=== PATIENT | male | born 1935 | race Caucasian/White ===

== ENCOUNTER 2018-10-18 20:16 | Inpatient (IN) | payer MEDICARE, BC ==
[~2018-10-18] VITALS: Ht 177.8 cm; Wt 89.6 kg
[2018-10-18 22:12] VITALS: BP 154/66
[2018-10-19] MEDS ORDERED: TIOT18CA INH (02:19)
[2018-10-19] MEDS ORDERED: OMEG1CAP6 PO (02:19)
[2018-10-19] MEDS ORDERED: OMEP20CA14 PO (02:19)
[2018-10-19] MEDS ORDERED: MONT10TA6 PO (02:19)
[2018-10-19] MEDS ORDERED: MULT-6 PO (02:19)
[2018-10-19] MEDS ORDERED: FURO-93 PO (02:19)
[2018-10-19] MEDS ORDERED: FLUT1AER INH (02:19)
[2018-10-19] MEDS ORDERED: HYDR-3237 PO (02:19)
[2018-10-19] MEDS ORDERED: ASPI-515 PO (02:19)
[2018-10-19] MEDS ORDERED: ISOS30TA8 PO (02:19)
[2018-10-19] MEDS ORDERED: OCCUVITE LUTEIN PO (02:19)
[2018-10-19] MEDS ORDERED: LUTE1CAP5 PEG (02:25)
[2018-10-19] MEDS ORDERED: ASPI81TA45 PO (02:25)
[2018-10-19 02:30] VITALS: BP 116/69
[2018-10-19] MEDS ORDERED: OXYcodone IR 5MG TABLET PO PRN (02:30)
[2018-10-19] MEDS ORDERED: LABETALOL 5MG/ML, 20ML IVPush PRN (02:30)
[2018-10-19] MEDS ORDERED: HYDROcodone/APAP 5/325 TABLET PO PRN (02:30)
[2018-10-19] MEDS ORDERED: NITROGLYCERIN 0.4 MG BOTTLE (25 TABS) SL PRN (02:30)
[2018-10-19] MEDS ORDERED: PROMETHAZINE 25 MG/ML, 1ML IM PRN (02:30)
[2018-10-19] MEDS ORDERED: POLYETHYLENE GLYCOL 17 GM PACKET PO PRN (02:30)
[2018-10-19] MEDS ORDERED: BISACODYL 10 MG SUPP PR PRN (02:30)
[2018-10-19] MEDS ORDERED: DOCUSATE 100 MG CAPSULE PO PRN (02:30)
[2018-10-19] MEDS ORDERED: ACETAMINOPHEN 325 MG TABLET PO PRN (02:30)
[2018-10-19] MEDS ORDERED: hydrALAzine 20 MG/ML, 1ML IVPush PRN (02:30)
[2018-10-19] MEDS ORDERED: ONDANSETRON 2MG/ML, 2ML IVPush PRN (02:30)
[2018-10-19] MEDS ORDERED: ONDANSETRON ODT 4 MG PO PRN (02:30)
[2018-10-19] MEDS ORDERED: GABAPENTIN 300 MG CAPSULE PO PRN (02:30)
[2018-10-19] MEDS ORDERED: morphine SULFATE 10 MG/ML, 1ML IVPush PRN (02:30)
[2018-10-19] MEDS: HEPARIN 5,000 UNITS/ML, 1ML SQ SCH ×2 (03:11→12:49)
[2018-10-19] MEDS: SODIUM CHLORIDE 0.9% 1,000 ML IV SCH ×2 (03:11→12:59)
[2018-10-19 03:21] LABS: BASOPHILS # (AUTO) 0.02 x10^3/uL (0-0.1); BASOPHILS % (AUTO) 0 % (0-1); EOSINOPHILS # (AUTO) 0.24 x10^3/uL (0-0.4); EOSINOPHILS % (AUTO) 3 % (1-7); LYMPHOCYTES # (AUTO) 1.79 x10^3/uL (1-3.4); LYMPHOCYTES % (AUTO) 20 % (22-44); MD NO; MEAN CORPUSCULAR HEMOGLOBIN 30.1 pg (27.5-34.5); MEAN CORPUSCULAR HGB CONC 32.9 g/dL (33.2-36.2); MEAN CORPUSCULAR VOLUME 91.3 fL (81-97); MEAN PLATELET VOLUME 7.7 fL (7.4-10.4); MONOCYTES # (AUTO) 1.06 x10^3/uL (0.2-0.8); MONOCYTES % (AUTO) 12 % (2-9); NEUTROPHILS # (AUTO) 5.88 x10^3/uL (1.8-6.8); NEUTROPHILS % (AUTO) 66 % (42-75); PLATELET COUNT 301 x10^3/uL (130-400); RED BLOOD COUNT 4.26 x10^6/uL (4.38-5.82); RED CELL DISTRIBUTION WIDTH 15.3 % (9.4-14.8)
[2018-10-19 03:35] LABS: ALBUMIN 2.8 g/dL (3.4-5.0); ANION GAP 6 mmol/L (5-15); CALCIUM 8.2 mg/dL (8.5-10.1); CHLORIDE 110 mmol/L (98-107); FREE T4 (FREE THYROXINE) 1.04 ng/dL (0.76-1.46)
[2018-10-19 03:40] LABS: ALANINE AMINOTRANSFERASE 35 U/L (12-78); ALKALINE PHOSPHATASE 85 U/L (45-117); BILIRUBIN,TOTAL 0.6 mg/dL (0.2-1.0); CHOLESTEROL, TOTAL 106 mg/dL (140-239); CREATININE 1.23 mg/dL (0.7-1.3); HDL CHOL % 33 % (26-37); HDL CHOLESTEROL (DIRECT) 35 mg/dL (40-60); LDL CHOLESTEROL,CALCULATED 56 mg/dL (54-169); LDL/HDL RATIO 1.6 (0.5-3.0); TOTAL PROTEIN 6.6 g/dL (6.4-8.2); TRIGLYCERIDES 76 mg/dL (50-200); VLDL CHOLESTEROL 15 mg/dL (0-25)
[2018-10-19 03:57] LABS: HEMOGLOBIN A1C 5.7 % (4.2-6.3)
[2018-10-19 04:09] LABS: MICROSCOPIC NOT IND
[2018-10-19 04:13] LABS: CULTURE INDICATED? NO
[2018-10-19] MEDS: ALBUTEROL/IPRATROPIUM 2.5MG/0.5MG, 3 ML NPPB SCH ×2 (07:00→09:58)
[2018-10-19 08:28] LABS: TROPONIN I 0.019 ng/mL (0.000-0.045)
[2018-10-19 08:57] VITALS: BP 137/75
[2018-10-19] MEDS ORDERED: REGADENOSON 0.4 MG/5 ML SYRINGE ONE (08:58)
[2018-10-19] MEDS ORDERED: ASPIRIN 81 MG TABLET EC PO SCH ×2 (09:00)
[2018-10-19] MEDS ORDERED: OMEPRAZOLE 20 MG CAPSULE.DR PO SCH (09:00)
[2018-10-19] MEDS ORDERED: ISOSORBIDE MONONITRATE ER 30 MG TABLET PO SCH (09:00)
[2018-10-19] MEDS ORDERED: MONTELUKAST 10 MG TABLET PO SCH (09:00)
[2018-10-19] MEDS ORDERED: TEMPLATE NON-FORMULARY MED. (Tiotropium Bromide** (Spiriva**) 18 MCG) INH SCH (09:00)
[2018-10-19] MEDS ORDERED: OMEGA-3/FISH OIL CAPSULE PO SCH (09:00)
[2018-10-19] MEDS ORDERED: MULTIVITAMIN 1 TABLET PO SCH (09:00)
[2018-10-19] MEDS ORDERED: BUDESONIDE 0.5 MG/2 ML INHA NPPB SCH (09:00)
[2018-10-19] MEDS ORDERED: FLUTICASONE/VILANTEROL 100-25MCG/INH INH SCH (09:00)
[2018-10-19] MEDS ORDERED: OCCUVITE LUTEIN PO SCH (09:00)
[2018-10-19] MEDS ORDERED: LOSA25TA2 PO (13:51)
[2018-10-19] MEDS ORDERED: CARV3.1212 PO (13:51)
[2018-10-19] MEDS ORDERED: MECL-85 PO (13:57)
== END 2018-10-19 15:29 | disposition home or self-care (01) | DRG 391 ==
LOC: EDSEX 22:08 → 5SO 22:08
PROVIDERS: ADMIT Internal Medicine; ATTEND Internal Medicine
DX: K21.9 Gastro-esophageal reflux disease without esophagitis (principal); I50.23 Acute on chronic systolic (congestive) heart failure; E44.0 Moderate protein-calorie malnutrition; I25.110 Atherosclerotic heart disease of native coronary artery with unstable angina pectoris; D64.9 Anemia, unspecified; E78.5 Hyperlipidemia, unspecified; I11.0 Hypertensive heart disease with heart failure; I73.9 Peripheral vascular disease, unspecified; J44.9 Chronic obstructive pulmonary disease, unspecified; Z87.891 Personal history of nicotine dependence; Z95.1 Presence of aortocoronary bypass graft; Z95.5 Presence of coronary angioplasty implant and graft; I25.10 Atherosclerotic heart disease of native coronary artery without angina pectoris; Z90.49 Acquired absence of other specified parts of digestive tract; Z68.28 Body mass index [BMI] 28.0-28.9, adult; Z88.8 Allergy status to other drugs, medicaments and biological substances
CPT/HCPCS: 36415; 71045; 78452; 80053; 80061; 81003; 83036; 83735; 84439; 84443; 84484; 85025; 93017; 93306; 94640; G0378; J1644; J2785; J7620; J7626; A9502; C9898; J7030